=== PATIENT | female | born 1935 | race Caucasian/White ===

== ENCOUNTER 2016-10-28 16:47 | Emergency (ER) | payer OTHER ==
[~2016-10-28] VITALS: Ht 157.5 cm; Wt 92.8 kg
[~2016-10-28 16:47] MED LIST: ASPIR-LOW81 MG PO; BAYER ASPIRIN PO; CALCIUM 500 +1 EACH PO; CALCIUM600 M1 PO; COUMADIN5 MG PO; ESCITALOPRAM OX10 MG PO; ESOMEPRAZOLE MA40 MG PO; FISH OIL OMEGA 3 PO; FLONASE16 G1 BOTH NARES; HYZAAR 50-121 TABLET PO; LASIX10 MG PO; LASIX20 MG PO; LEVO-T112 MCG PO; LEVOTHYROXINE112 MCG PO; LEVOXYL150 MCG PO; MULTIVITAMIN1 EAC2 PO; OS-CAL 500+D C1 EAC1 PO; PROTONIX40 MG PO; ROXICODONE5 MG PO; THERAGRAN1 TABLET PO; TYLENOL EXTRA500 MG PO; VITAMIN D31000 UNI2 PO; WARFARIN SODIU2.5 MG PO; ZYRTEC10 M3 PO
[2016-10-28 17:46] LABS: INTER. NORMALIZED RATIO 2.1; PROTHROMBIN TIME 22.4 (9.2-11.2); PTT 36.3 (25-32)
[2016-10-28 19:03] VITALS: BP 148/67
== END 2016-10-28 19:04 | disposition home or self-care (01) ==
LOC: EME 16:47
DX: S00.83XA Contusion of other part of head, initial encounter (principal); W18.30XA Fall on same level, unspecified, initial encounter; Z79.01 Long term (current) use of anticoagulants; Z88.2 Allergy status to sulfonamides
CPT/HCPCS: 70450; 85610; 85730; 99281; 99284